=== PATIENT | male | born 1990 | race Caucasian/White ===

== ENCOUNTER 2017-12-22 16:09 | Emergency (ER) | payer SELFPAY ==
--- NOTE | 2017-12-22 19:00 | ED ---
Skin Complaint - HPI Summary HPI Summary: Ambidextrous patient here with right hand laceration prior to arrival. Was working with a woodcarving device and accidentally stabbed himself in the webbing between his right thumb and index finger. Reports he cleaned this out with water and alcohol prior to arrival. Denies numbness and weakness however he does have some "pins and needle" sensation about his thumb. Imms are up-to- date. - History of Current Complaint Chief Complaint: EDLacSutureRecheck Time Seen by Provider: 12/22/17 17:39 Stated Complaint: HAND LAC Hx Obtained From: Patient, Family/Upholstery Cleaner - female partner Pain Intensity: 99 - Allergy/Home Medications Allergies/Adverse Reactions: Allergies Allergy/AdvReac Type Severity Reaction Status Date / Time amoxicillin Allergy Hives Verified 12/22/17 16:18 augmentin Allergy Hives/Diff. Uncoded 12/22/17 16:19 Breathing/I tching PMH/Surg Hx/FS Hx/Imm Hx Previously Healthy: Yes Endocrine/Hematology History: Denies: Hx Anticoagulant Therapy, Hx Blood Disorders, Autoimmune Disease - Immunization History Immunizations Up to Date: Yes Infectious Disease History: No Infectious Disease History: Denies: Traveled Outside the [place] in Last 30 Days - Family History Known Family History: Positive: None - Social History Occupation: Employed Full-time - self-employed - [employer], wood worker Lives: With Family Alcohol Use: Daily Alcohol Amount: 1 beer Hx Substance Use: No Substance Use Type: Reports: None Hx Tobacco Use: Yes - not currently Smoking Status (MU): Former Smoker Review of Systems Positive: no symptoms reported Musculoskeletal: Other - pain w/ abduction of thumb but can move in all ROM's Skin: Other - lac Positive: Paresthesia - thumb pad with paresthesia. Negative: Weakness, Numbness Psychological: Normal All Other Systems Reviewed And Are Negative: Yes Physical Exam Triage Information Reviewed: Yes Vital Signs On Initial Exam: Initial Vitals Temp Pulse Resp BP Pulse Ox 98.6 F 64 16 115/66 99 12/22/17 16:12 12/22/17 16:12 12/22/17 16:12 12/22/17 16:12 12/22/17 16:12 Vital Signs Reviewed: Yes Appearance: Positive: Well-Appearing, No Pain Distress, Well-Nourished Skin: Positive: Warm, Skin Color Reflects Adequate Perfusion - 1.5cm linear lac over webbing of Rt hand between thumb and index finger - clean, no debris, tendon is visible however is still coated and connective tissue and does not appear to be damaged Head/Face: Positive: Normal Head/Face Inspection Eyes: Positive: EOMI ENT: Positive: Hearing grossly normal Respiratory/Lung Sounds: Positive: Breath Sounds Present Cardiovascular: Positive: Pulses are Symmetrical in both Upper and Lower Extremities Musculoskeletal: Positive: Normal, Strength/ROM Intact Neurological: Positive: Sensory/Motor Intact - decreased sensation over Rt thumb pad however pt can discern sharp from dull here - reports the dorsal aspect of thumb was decreased at arrival but has completely returned and feels the "pins nad needle" sensation over pad of thumb is improving as well., Alert, Oriented to Person Place, Time, CN Intact II-III Psychiatric: Positive: Normal Procedures - Laceration/Wound Repair 1 Location: upper extremity - Rt hand Description: Linear - pt declined anesthesia Length, Depth and Shape: 1.5cm x 4mm Betadine Prep?: Yes Irrigated w/ Saline (ccs): 500 - soaked in hibaclens/water solution - clean Laceration/Wound Explored: clean Closure: Single Layer Suture Type: Nylon - 5-0 Number of Sutures: 3 Layer Closure?: No Sterile Dressing Applied?: Yes - triple anbx oint +sterile gauze + Terry hemodynamically stable, pt saira well Diagnostics - Vital Signs Vital Signs Temp Pulse Resp BP Pulse Ox 12/22/17 16:12 98.6 F 64 16 115/66 99 - Laboratory Lab Statement: Any lab studies that have been ordered have been reviewed, and results considered in the medical decision making process. Course/Dx - Diagnoses Provider Diagnoses: Laceration of hand, right Discharge - Discharge Plan Condition: Stable Disposition: HOME Patient Education Materials: Laceration (ED), Care For Your Stitches (ED) Referrals: [facility] [Outside] Additional Instructions: Keep wound clean, dry and covered for the next 48 hours. After that time, he may remove your dressing, gently wash with soap and water, rinse well and pat dry with a clean cloth. Reapply triple antibiotic ointment, cover with clean gauze, and reapply Terry wrap to support dressing. Avoid use of the hand if possible, especially movements of thumb (ie. lifting,carrying etc). Follow up with primary care, urgent care or return to the emergency department in 10-14 days for wound check and suture removal. In the meantime, rest, ice, elevate and take ibuprofen with food for pain. *If you develop numbness, tingling or weakness in the meantime, you may return to the ED or follow-up with a hand specialist. Contact information included here. *If you develop redness, swelling, streaking, purulent drainage, fever, worsening of pain, return to the emergency department.
[2017-12-22 19:16] VITALS: BP 122/75
== END 2017-12-22 19:16 | disposition home or self-care (01) ==
LOC: ED 16:09
DX: S61.411A Laceration without foreign body of right hand, initial encounter (principal); Z87.891 Personal history of nicotine dependence; W45.8XXA Other foreign body or object entering through skin, initial encounter; Y92.9 Unspecified place or not applicable
CPT/HCPCS: 12001; 99282